=== PATIENT | male | born 1970 | race Caucasian/White ===

== ENCOUNTER 2024-10-21 10:31 | Outpatient (CLI) | payer MEDICAID, SELFPAY | END 2024-10-21 10:32 | disposition home or self-care (01) | LOC: INJ CL 10:33 | PROVIDERS: PCP Student in an Organized Health Care Education/Training Program; Visit Provider Family Medicine | DX: M17.12 Unilateral primary osteoarthritis, left knee (principal); M25.562 Pain in left knee | CPT/HCPCS: 64454 ==

== ENCOUNTER 2024-11-04 12:14 | Outpatient (CLI) | payer MEDICAID, SELFPAY ==
--- OUTSIDE RECORDS SUMMARY | 2024-11-05 00:20 | XMS_ITS | Clinical Summary ---
Author Organization [facility] Address [address] [place] [id number] Care Team Providers Care Family Lawyer Name Role Phone [facility], [facility] Primary Care Provider Medications CABERGOLINE PO Take 0.5 mg by mouth twice a week Takes on Mondays and Active mirtazapine (REMERON) 15 MG tabletIndicatio ns:Severe recurrent major depression without psychotic features (H) Take 1 tablet (15 mg) by mouth At Bedtime 30 tablet 8 Active QUEtiapine (SEROQUEL) 50 MG tabletIndicatio ns:Severe recurrent major depression without psychotic features (H) Take 1 tablet (50 mg) by mouth 2 times daily as needed (anxiety) 60 tablet 8 Active Active Problems Problem Noted Date Diagnosed Date Psychosis 05/15/2017 Social History Tobacco Use Types Packs/Day Years Used Date Smoking Tobacco: Never Smokeless Tobacco: Current Alcohol Use Standard Drinks/Week Comments Yes 0 (1 standard drink = 0.6 oz pur e alcohol) Sex and Gender Information Value Date Recorded Sex Assigned at Not on file 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 Gender Identity Not on file Sexual Orientation Not on file Last Filed Vital Signs Vital Sign Reading Time Taken Comments Blood Pressure 125/79 12/24/2017 3:08 AM CDT Pulse 75 05/21/2017 8:51 AM [employer]IONAL SALES LEADER Temperature 36.9 C (98.4 F) 12/23/2017 10:24 PM CDT Respiratory Rate 17 05/21/2017 8:51 AM [employer]IONAL SALES LEADER Oxygen Saturation 97% 12/24/2017 3:08 AM CDT Inhaled Oxygen Concentration - - Weight 91.9 kg (202 lb 8 oz) 05/15/2017 7:00 PM [employer]IONAL SALES LEADER Height 177.8 cm (5' 10) 05/15/2017 7:00 PM [employer] SALES LEADER Body Mass Index 29.06 05/15/2017 7:00 PM [employer]IONAL SALES LEADER Plan of Treatment Not on file Advance Directives For more information, please contact: [phone] * Full Code (Latest Code Status on File) Date Activated Date Inactivated Comments 05/15/2017 8:30 PM 05/21/2017 3:28 PM Care Teams Family Lawyer Relationship Specialty Start Date End Date [facility] [address] [place] [id number] PCP - General 05/15/17
--- OUTSIDE RECORDS SUMMARY | 2024-11-05 00:20 | XMS_ITS | Clinical Summary ---
Author Organization [facility] Address [address] [place] [id number] Care Team Providers Care Supervisor Statement Clerks Name Role Phone Heather Domingo DO Unavailable [phone] Pcp, No Primary Care Provider Unavailabl e Allergies Active Allergy Reactions Criticality Noted Date Comments Trazodone Other - Describe In Comment Field 02/13/2012 Crazy dreams Medications ibuprofen (ADVIL; MOTRIN) 200 mg tablet Take 2 tablets by mouth 4 times daily if needed. 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 12/31/2020 Alcoholic cardiomyopathy 09/05/2018 Panic disorder 12/31/2017 Alcohol abuse 12/31/2017 Mild episode of recurrent major depressive disor imtiaz 12/31/2017 Psychosis 05/15/2017 Prolactin secreting pituitary adenoma 11/26/2013 Anxiety state, unspecified 02/14/2010 Resolved Problems Problem Noted Date Diagnosed Date Resolved Date Alcohol intoxication 12/24/2017 022 Encounters Date Type Department Care Team Description 11/04/2024 1:00 PM CDT Procedure Only [facility] [address] [place] [id number] Anders Urena MD Procedure (Left knee [place] RFA) 11/04/2024 Travel 10/21/2024 3:20 PM CDT Procedure Only [facility] [address] [place] [address] Anders Urena MD Procedure (Left knee genicular nerve block ) 08/06/2024 4:20 PM CDT Office Visit [facility] [address] [place] [address] Anders Urena MD Musculoskeletal Problem (Follow up left knee) 08/06/2024 Travel from Last 3 Months Immunizations Immunization Administration Dates Next Due COVID-19 VACCINE SPIKEVAX (M ODERNA 50MCG/0.5ML) 12YO+ PFS 05/25/2023 COVID-19 vaccine (Pfizer-Bio NTech 30mcg/0.3mL) 12YO+ EMBER-SUCROSE PF, MDV 12/02/2021 Influenza, IIV4 05/25/2023 Tdap 08/25/2015 Zoster (Shingrix-RZV, recombinant) 02/16/2023, Family History Medical History Relation Name Comments Allergies Father Asthma Father Psychiatric illness Father panic d/ o Unknown Maternal Aunt Cancer Maternal Grandfather Alcohol/Drug Maternal Grandmother Psychiatric illness Maternal Grandmother Unknown Maternal Uncle Alcohol/Drug Mother Good Health Mother in MVA Unknown Paternal Aunt Diabetes Paternal Grandfather Hypertension Paternal Grandmother Unknown Paternal Uncle Relation Name Status Comments Brother 1 jessica Alive Brother 2 Phillip Alive Father Alive Maternal Aunt Maternal Grandfather Maternal Grandmother Alive Maternal Uncle Mother Alive Paternal Aunt Paternal Grandfather Paternal Grandmother Paternal Uncle Social History Tobacco Use Types Packs/Day Years Used Date Smoking Tobacco: Never Smokeless Tobacco: Current Chew Tobacco Cessation:Ready to Q uit: No; Counseling Given: Yes Comments:chewing tobacco one tin q 10 days Alcohol Use Standard Drinks/Week Comments Yes 0 (1 standard drink = 0.6 oz pur e alcohol) 1 drink per month of less PHQ-2 Answer Date Recorded PHQ-2 Score 3 07/07/2018 Social Connections Answer Date Recorded Frequency of Communication with Friends and Fami ly 4 02/13/2022 Financial Resource Strain Answer Date R ecorded Difficulty of Paying Living Expenses 2 02/13/2022 Difficulty of Paying Living Expenses 1 02/13/2022 Food Insecurity Answer Date Recorded Worried About Running Out of Food in the Last Ye ar 1 02/13/2022 Transportation Needs Answer Date Record ed Lack of Transportation (Medical) 2 02/13/2022 Housing Stability Answer Date Recorded Unable to Pay for Housing in the Last Year 3 02/13/2022 Sex and Gender Information Value Date Recorded Sex Assigned at Not on file 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 Gender Identity Not on file Sexual Orientation Not on file Obstetrics History Last Filed Vital Signs Vital Sign Reading Time Taken Comments Blood Pressure 143/81 08/06/2024 4:27 PM CDT Pulse 52 08/06/2024 4:27 PM CDT Temperature 36.7 C (98.1 F) 08/06/2024 4:27 PM CDT Respiratory Rate 16 2017 12:14 PM CDT Oxygen Saturation 98% 08/06/2024 4:27 PM CDT Inhaled Oxygen Concentration - - Weight 88.1 kg (194 lb 3.2 oz) 08/06/2024 4:27 P M CDT shoes on Height 180.3 cm (5' 11) 05/25/2023 3:20 PM HYDROMETALLURGICAL ENGINEER Body Mass Index 27.09 05/25/2023 3:20 PM HYDROMETALLURGICAL ENGINEER Plan of Treatment Health Maintenance Due Date Last Done Comments HIV for age 15-65 1985 Hepatitis C screening for ag e 18-79 1988 Hepatitis B series for 19+ ( 1 of 3 - 19+ 3-dose series) 1989 Pneumococcal series for age 50+ (1 of 2 - PCV) 1989 Colonoscopy through age 75 12/26/2015 Depression screening for age 12+ 12/29/2021 12/29/2020, 12/31/2017, 08/25/2015 Lipids for age 45-75 12/31/2022 12/31/2017 COVID-19 vaccine series ( season) 2024 05/25/2023, 12/02/2021, 04/06/2021, Additional history exists BMI (ht and wt on same day) for age 18+ 05/25/2024 05/25/2023, 12/31/2017, 08/25/2015, Additional history exists Influenza Vaccine (#1) 2025 05/25/2023 Tetanus booster 08/24/2025 08/25/2015 Zoster (shingles) series for age 50+ Completed 02/16/2023, 11/22/2022 Procedures Procedure Name Priority Date/Time Associated Diagnosis Comments AMB CONSULT FOR INJECTION Routine 10/21/2024 12:00 AM CDT Patellofemoral arthritis of left knee Injury of articular cartilage of left knee Chronic pain of left knee LIPID PANEL W REFLEX MEASURED LDL Routine 12/31/2017 3:00 PM CDT Anxiety state, unspecified Mild episode of recurrent major depressive disorder Panic disorder PTSD (post-traumatic stress disorder) from Last 3 Months or Most Recently Relevant to Health Maintenance Results * AMB CONSULT FOR INJECTION (10/21/2024 12:00 AM CDT) us Anders Urena MD AMB REFERRAL/CONSULT ORD F inal Result * LIPID PANEL W REFLEX MEASURED LDL (12/31/2017 3:00 PM CDT) Pathologist [facility] CHOLESTEROL,TOTAL 144 100 - 199 mg/dL 12/31/2017 7:10 PM CDT [facility] TRIGLYCERIDES 57 <150 mg/dL 12/31/2017 7:10 PM CDT [facility] HDL CHOLESTEROL 63 >40 mg/dL 8 7:10 PM CDT [facility] NON-HDL CHOLESTEROL 81 <145 mg/dl 12/31/2017 7:10 PM CDT [facility] CHOL/HDL RATIO 2.29 <4.50 12/31/2017 7:10 PM CDT [facility] LDL CHOLESTEROL 70 <=130 mg/dL 12/31/2017 7:10 PM CDT [facility] PROVIDER ORDERED STATUS RANDOM 12/31/2017 7:10 PM CDT [facility] Blood BLOOD SPECIMEN / Unknown Venipuncture / Unknown 12/31/2017 3:00 PM CDT 12/31/2017 3:01 PM CDT us Saul Balderrama MD CHEMISTRY Final Re sult [facility] [address] [place] [address], from Last 3 Months or Most Recently Relevant to Health Maintenance Insurance [employer] Advance Directives * Full Code (Latest Code Status on File) Date Activated Date Inactivated Comments 12/24/2017 4:24 AM 2017 5:59 PM Care Teams Supervisor Statement Clerks Relationship Specialty Start Date End Date Pcp, No . PCP - General 05/14/24 Heather Domingo DO [address] [place] [address] Endocrinology 05/25/22
== END 2024-11-04 12:15 | disposition home or self-care (01) ==
LOC: INJ CL 12:15
PROVIDERS: PCP Student in an Organized Health Care Education/Training Program; Visit Provider Family Medicine
DX: M17.12 Unilateral primary osteoarthritis, left knee (principal); M25.562 Pain in left knee
CPT/HCPCS: 64624; J2250; J3010